=== PATIENT | male | born 1975 | race Caucasian/White ===

== ENCOUNTER → 2018-10-27 | Outpatient (CLI) | payer OTHER ==
[~2018-10-27] MED LIST: IOHEXOL 300 MG/ML 75 ML VIAL. IV ONE
--- NOTE | 2018-10-27 16:58 | RAD ---
TESTICULAR/SCROTUM History: Left testicular pain Comparison: None. Findings: Multiple grayscale, color, and duplex spectral analysis waveform images of the testicles and scrotum are submitted. Right testicle measured 4.2 x 3.7 x 2.6 cm. Left testicle measured 4.6 x 3.6 x 2.5 cm. No intratesticular mass is demonstrated on either side. There is normal low resistance vascularity of interrogated intratesticular vessels bilaterally. There is left varicocele. There are right greater than left hydroceles. Impression: 1. There is no evidence of intratesticular mass or torsion. There are bilateral hydroceles greater on the right. There is left varicocele. Electronically signed by: Harris Gregory MD (10/27/2018 4:55 PM) [id number]
== END | disposition home or self-care (01) ==
LOC: US 14:52
PROVIDERS: ATTEND Registered Nurse
DX: I86.1 Scrotal varices (principal); N43.3 Hydrocele, unspecified
CPT/HCPCS: 76870

== ENCOUNTER → 2019-05-05 | Outpatient (CLI) | payer OTHER ==
--- NOTE | 2019-05-05 16:35 | RAD ---
EXAM: Right foot, 2 views. HISTORY: Pain. COMPARISON: None. FINDINGS: 2 views of the right foot are obtained. There is no fracture, dislocation or subluxation. There is mild spurring involving the first metatarsal phalangeal joint. There is a tiny plantar spur. IMPRESSION: . No acute osseous finding. 2. Mild first metatarsophalangeal joint osteoarthritis. Electronically signed by: Lea Sandra MD (05/05/2019 4:32 PM) [facility]
== END | disposition home or self-care (01) ==
LOC: RAD 16:13
PROVIDERS: ATTEND Physician Assistant
DX: M19.071 Primary osteoarthritis, right ankle and foot (principal); M77.51 Other enthesopathy of right foot and ankle
CPT/HCPCS: 73620

== ENCOUNTER → 2020-02-10 | Outpatient (CLI) | payer OTHER ==
--- NOTE | 2020-02-10 16:45 | RAD ---
EXAM: Left knee, 3 views. HISTORY: Pain. COMPARISON: None. FINDINGS: 3 views of the left knee are obtained. There is mild proximal bilateral spurring. There is a enthesophyte along the superior patella. There is a suspected intra-articular osteophyte along the anterior tibial plateau. There is a small joint effusion. IMPRESSION: Mild osteoarthritis of the left knee with small joint effusion. Electronically signed by: Lea Sandra MD (02/10/2020 4:42 PM) [id number]
== END | disposition home or self-care (01) ==
LOC: RAD 14:46
PROVIDERS: ATTEND Physician Assistant
DX: M17.12 Unilateral primary osteoarthritis, left knee (principal); M25.462 Effusion, left knee; M76.9 Unspecified enthesopathy, lower limb, excluding foot
CPT/HCPCS: 73562